=== PATIENT | female | born 1995 | race Caucasian/White ===

== ENCOUNTER 2019-11-17 12:05 | Emergency (ER) | payer MEDICAID ==
[~2019-11-17] VITALS: Ht 157.5 cm; Wt 68.0 kg
[2019-11-17 12:06] VITALS: BP 105/74
--- NOTE | 2019-11-17 12:13 | NUR ---
PT AMBULATED TO ER BED 12
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
--- NOTE | 2019-11-17 12:34 | NUR ---
UA DONE, HCG NEG
--- NOTE | 2019-11-17 12:36 | NUR ---
ICE PACK GIVEN TO PLACE ON TOE
[2019-11-17] MEDS ORDERED: ACETAMINOPHEN 325 MG TAB PO ONE (14:00)
[2019-11-17] MEDS ORDERED: IBUPROFEN 400 MG TAB PO ONE (14:00)
--- NOTE | 2019-11-17 14:13 | NUR ---
APPLIED GENE TAPE TO RIGHT 4TH AND 3RD DIGITS WITHOUT ANY ISSUES
[2019-11-17 14:17] VITALS: BP 112/82
== END 2019-11-17 14:17 | disposition home or self-care (01) ==
LOC: MED 12:05
DX: S97.122A Crushing injury of left lesser toe(s), initial encounter (principal); Z90.49 Acquired absence of other specified parts of digestive tract; W23.0XXA Caught, crushed, jammed, or pinched between moving objects, initial encounter; Y93.89 Activity, other specified; Y92.89 Other specified places as the place of occurrence of the external cause; Y99.8 Other external cause status
CPT/HCPCS: 73630; 73660; 81002; 81025; 99284